=== PATIENT | female | born 1955 | race Caucasian/White ===

== ENCOUNTER 2020-09-09 13:04 | Outpatient (CLI) | payer OTHER ==
--- NOTE | 2020-10-07 14:04 | MMO ---
Bilateral MAMMO Bilat Screen [facility]. CLINICAL HISTORY: Patient is 65 years old and is seen for screening. The patient has the following family history of breast cancer: niece, at age 46, malignant (generic). The patient has no personal history of cancer. VIEWS: The views performed were: bilateral craniocaudal with tomosynthesis and bilateral mediolateral oblique with tomosynthesis. This study has been interpreted with the assistance of computer-aided detection. MAMMOGRAM FINDINGS: There are scattered fibroglandular densities. There are no suspicious masses, suspicious calcifications, or new areas of architectural distortion. IMPRESSION: THERE IS NO MAMMOGRAPHIC EVIDENCE OF MALIGNANCY. A ROUTINE FOLLOW-UP MAMMOGRAM IN 1 YEAR IS RECOMMENDED. THE RESULTS OF THIS EXAM WERE SENT TO THE PATIENT. ACR BI-RADS Category 1 - Negative MAMMOGRAPHY NOTE: 1. A negative mammogram report should not delay a biopsy if a dominant of clinically suspicious mass is present. 2. Approximately 10% to 15% of breast cancers are not detected by mammography. 3. Adenosis and dense breasts may obscure an underlying neoplasm. Reported by: KIESHA JASON MD Electonically Signed: [id number]
== END 2020-09-09 13:05 | disposition home or self-care (01) ==
LOC: BICMAMMO 13:04
PROVIDERS: ATTEND Family Medicine
DX: Z12.31 Encounter for screening mammogram for malignant neoplasm of breast (principal); Z80.3 Family history of malignant neoplasm of breast
CPT/HCPCS: 77063; 77067

== ENCOUNTER 2021-09-11 13:34 | Outpatient (CLI) | payer MEDICARE | END 2021-09-11 13:35 | disposition home or self-care (01) | LOC: BICMAMMO 13:34 | PROVIDERS: ATTEND Family Medicine | DX: Z12.31 Encounter for screening mammogram for malignant neoplasm of breast (principal); Z13.820 Encounter for screening for osteoporosis; Z78.0 Asymptomatic menopausal state; Z80.3 Family history of malignant neoplasm of breast; M85.89 Other specified disorders of bone density and structure, multiple sites | CPT/HCPCS: 77063; 77067; 77080 ==

== ENCOUNTER 2022-09-22 13:49 | Outpatient (CLI) | payer MEDICARE | END 2022-09-22 13:50 | disposition home or self-care (01) | LOC: BICULT 13:49 | PROVIDERS: ATTEND Family Medicine | DX: R79.89 Other specified abnormal findings of blood chemistry (principal) | CPT/HCPCS: 76770 ==

== ENCOUNTER 2022-09-28 14:51 | Outpatient (CLI) | payer MEDICARE | END 2022-09-28 14:52 | disposition home or self-care (01) | LOC: BICCT 14:51 | PROVIDERS: ATTEND Family Medicine | DX: N20.0 Calculus of kidney (principal); N28.89 Other specified disorders of kidney and ureter | CPT/HCPCS: 74176 ==

== ENCOUNTER 2022-10-06 07:49 | Outpatient (CLI) | payer MEDICARE | END 2022-10-06 07:50 | disposition home or self-care (01) | LOC: BICMAMMO 07:49 | PROVIDERS: ATTEND Family Medicine | DX: Z12.31 Encounter for screening mammogram for malignant neoplasm of breast (principal); Z80.3 Family history of malignant neoplasm of breast | CPT/HCPCS: 77063; 77067 ==

== ENCOUNTER 2023-01-28 12:56 | Outpatient (CLI) | payer MEDICARE | END 2023-01-28 12:57 | disposition home or self-care (01) | LOC: BICULT 12:56 | PROVIDERS: ATTEND Internal Medicine Nephrology | DX: N18.30 Chronic kidney disease, stage 3 unspecified (principal); N28.9 Disorder of kidney and ureter, unspecified; N20.0 Calculus of kidney | CPT/HCPCS: 36415; 76770; 80048; 81001; 83970; 84100; 85025 ==

== ENCOUNTER 2024-11-20 08:51 | Outpatient (CLI) | payer MEDICARE | END 2024-11-20 08:52 | disposition home or self-care (01) | LOC: BICMAMMO 08:51 | PROVIDERS: ATTEND Family Medicine | DX: Z12.31 Encounter for screening mammogram for malignant neoplasm of breast (principal); Z80.3 Family history of malignant neoplasm of breast | CPT/HCPCS: 77063; 77067 ==